=== PATIENT | female | born 1940 | race Caucasian/White ===

== ENCOUNTER 2016-10-19 13:20 | Emergency (ER) | payer MEDICARE ==
[~2016-10-19] VITALS: Ht 165.1 cm; Wt 103.4 kg
[~2016-10-19 13:20] MED LIST: AMIODARONE HCL100 MG PO; ASPIRIN325 MG PO; BUSPIRONE HCL7.5 MG PO; BYSTOLIC10 MG PO; CORDARONE200 MG PO; CYMBALTA30 MG PO; HYDREA500 M1 PO; KLONOPIN1 MG PO; KLOR-CON M2020 MEQ PO; LASIX40 MG PO; LIPITOR80 MG PO; MIRALAX17 GM PO; NORCO 325-5 MG1 TAB PO; PACERONE100 MG PO; PRILOSEC20 MG PO; RYTHMOL150 MG PO; TIMOPTIC 0.5%1 EACH EYEBOTH; TIMOPTIC 0.5%1 EACH EYERT; TUMS500 MG PO; XARELTO15 MG PO; ZOFRAN ODT4 MG PO
[2017-01-10] MEDS ORDERED: BUSPAR10 MG PO (03:01)
[2017-01-10] MEDS ORDERED: TYLENOL325 MG PO (03:02)
[2017-01-10] MEDS ORDERED: ULTRAM50 MG PO (03:03)
[2017-01-10] MEDS ORDERED: OXYCODONE HCL5 MG PO (03:03)
[2017-01-10] MEDS ORDERED: ALDACTONE25 MG PO (09:22)
[2017-01-11] MEDS ORDERED: NORCO 325-5 MG1 TAB PO ×2 (08:46→08:47)
[2017-01-11] MEDS ORDERED: ZOFRAN ODT4 MG PO (08:49)
== END 2016-10-19 16:51 | disposition short-term general hospital (02) ==
LOC: ER 13:20
DX: I10 Essential (primary) hypertension (principal); I48.91 Unspecified atrial fibrillation; Z95.1 Presence of aortocoronary bypass graft; Z79.899 Other long term (current) drug therapy
CPT/HCPCS: J2175

== ENCOUNTER → 2016-10-26 | Outpatient (CLI) | payer MEDICARE ==
[~2016-10-26] MED LIST changes: +ALDACTONE25 MG PO; +BUSPAR10 MG PO; +LASIX20 MG PO; +MINOXIDIL2.5 MG PO; +OXYCODONE HCL5 MG PO; +TYLENOL325 MG PO; +ULTRAM50 MG PO
== END | disposition short-term general hospital (02) ==
LOC: CLCARD 08:31
DX: I48.0 Paroxysmal atrial fibrillation (principal); I10 Essential (primary) hypertension; E78.5 Hyperlipidemia, unspecified; E66.9 Obesity, unspecified

== ENCOUNTER → 2016-10-31 | Outpatient (CLI) | payer MEDICARE | END | disposition short-term general hospital (02) | LOC: CLORTH 10:38 | DX: Z47.1 Aftercare following joint replacement surgery (principal); M17.11 Unilateral primary osteoarthritis, right knee; Z96.652 Presence of left artificial knee joint ==

== ENCOUNTER → 2016-11-02 | Outpatient (CLI) | payer MEDICARE | END | disposition short-term general hospital (02) | LOC: CLCARD 08:23 | DX: I48.0 Paroxysmal atrial fibrillation (principal); I10 Essential (primary) hypertension; E78.5 Hyperlipidemia, unspecified; I50.30 Unspecified diastolic (congestive) heart failure; E66.9 Obesity, unspecified; I83.90 Asymptomatic varicose veins of unspecified lower extremity; I95.1 Orthostatic hypotension ==

== ENCOUNTER → 2016-11-09 | Outpatient (CLI) | payer MEDICARE | END | disposition short-term general hospital (02) | LOC: CLCARD 10:19 | DX: I48.0 Paroxysmal atrial fibrillation (principal); I50.30 Unspecified diastolic (congestive) heart failure; I10 Essential (primary) hypertension; I83.90 Asymptomatic varicose veins of unspecified lower extremity; E78.5 Hyperlipidemia, unspecified; E66.9 Obesity, unspecified ==

== ENCOUNTER 2016-11-22 05:42 | Emergency (ER) | payer MEDICARE ==
[~2016-11-22] VITALS: Ht 165.1 cm; Wt 109.3 kg
[~2016-11-22 05:42] MED LIST changes: -ALDACTONE25 MG PO; -BUSPAR10 MG PO; -LASIX20 MG PO; -MINOXIDIL2.5 MG PO; -OXYCODONE HCL5 MG PO; -TYLENOL325 MG PO; -ULTRAM50 MG PO
[2016-11-22] MEDS ORDERED: LASIX20 MG PO (06:06)
[2016-11-22] MEDS ORDERED: MINOXIDIL2.5 MG PO (06:08)
[2017-01-10] MEDS ORDERED: BUSPAR10 MG PO (03:01)
[2017-01-10] MEDS ORDERED: TYLENOL325 MG PO (03:02)
[2017-01-10] MEDS ORDERED: ULTRAM50 MG PO (03:03)
[2017-01-10] MEDS ORDERED: OXYCODONE HCL5 MG PO (03:03)
[2017-01-10] MEDS ORDERED: ALDACTONE25 MG PO (09:22)
[2017-01-11] MEDS ORDERED: NORCO 325-5 MG1 TAB PO ×2 (08:46→08:47)
[2017-01-11] MEDS ORDERED: ZOFRAN ODT4 MG PO (08:49)
== END 2016-11-22 08:12 | disposition short-term general hospital (02) ==
LOC: ER 05:42
DX: F41.9 Anxiety disorder, unspecified (principal); S90.32XA Contusion of left foot, initial encounter; I50.9 Heart failure, unspecified; I48.91 Unspecified atrial fibrillation; Z96.652 Presence of left artificial knee joint; W22.8XXA Striking against or struck by other objects, initial encounter; Z79.899 Other long term (current) drug therapy
CPT/HCPCS: J2060

== ENCOUNTER → 2016-12-07 | Outpatient (CLI) | payer MEDICARE ==
[~2016-12-07] MED LIST changes: +ALDACTONE25 MG PO; +BUSPAR10 MG PO; +LASIX20 MG PO; +MINOXIDIL2.5 MG PO; +OXYCODONE HCL5 MG PO; +TYLENOL325 MG PO; +ULTRAM50 MG PO
== END | disposition short-term general hospital (02) ==
LOC: CLCARD 11:16
DX: I11.0 Hypertensive heart disease with heart failure (principal); I50.30 Unspecified diastolic (congestive) heart failure; E78.5 Hyperlipidemia, unspecified; E66.9 Obesity, unspecified; I83.90 Asymptomatic varicose veins of unspecified lower extremity; Z86.79 Personal history of other diseases of the circulatory system; Z95.0 Presence of cardiac pacemaker

== ENCOUNTER → 2016-12-26 | Outpatient (CLI) | payer MEDICARE | END | disposition short-term general hospital (02) | LOC: CLORTH 03:52 | DX: M17.11 Unilateral primary osteoarthritis, right knee (principal) | CPT/HCPCS: J1642 ==

== ENCOUNTER → 2016-12-28 | Outpatient (CLI) | payer MEDICARE | END | disposition short-term general hospital (02) | LOC: CLCARD 06:56 | DX: I11.0 Hypertensive heart disease with heart failure (principal); I50.30 Unspecified diastolic (congestive) heart failure; I95.1 Orthostatic hypotension; D75.1 Secondary polycythemia; E78.5 Hyperlipidemia, unspecified; I48.0 Paroxysmal atrial fibrillation; E66.9 Obesity, unspecified; I83.90 Asymptomatic varicose veins of unspecified lower extremity; Z95.0 Presence of cardiac pacemaker; Z86.79 Personal history of other diseases of the circulatory system ==

== ENCOUNTER → 2017-01-23 | Outpatient (CLI) | payer MEDICARE | END | disposition short-term general hospital (02) | LOC: CLORTH 02:26 | DX: Z47.1 Aftercare following joint replacement surgery (principal); Z96.651 Presence of right artificial knee joint ==